=== PATIENT | female | born 2000 | race Caucasian/White ===

== ENCOUNTER 2022-08-16 15:50 | Emergency (ER) | payer OTHER ==
[2022-08-16 15:57] VITALS: BP 129/90; PULSE 95; RESP 18; TEMP 98.1; BMI 30.6
[2022-08-16] MEDS ORDERED: ACETAMINOPHEN 325 MG TABLET (FP) PO ONE (17:07)
[2022-08-16] MEDS ORDERED: ACETAMINOPHEN 325 MG TABLET (FP) ONE (17:07)
[2022-08-16 17:38] LABS: BASO % 0.6 % (0-2.0); EOS % 1.5 % (0-4.5); HCG,QUALITATIVE URINE Positive; HEMATOCRIT 40.8 % (32.4-45.2); HEMOGLOBIN 13.6 GM/dL (10.7-15.3); LYMPH % 20.4 % (8-40); MCH 24.1 pg (25.7-33.7); MCHC 33.3 g/dl (32.0-36.0); MEAN CELL VOLUME 72.3 fl (80-96); MEAN PLT VOLUME 9.7 fl (7.5-11.1); MONO % 5.8 % (3.8-10.2); NEUT % 71.7 % (42.8-82.8); PLATELET COUNT 322 10^3/uL (134-434); RBC 5.64 M/mm3 (3.60-5.2); RDW 15.6 % (11.6-15.6); WHITE BLOOD COUNT 16.3 K/mm3 (4.0-10.0)
[2022-08-16 17:41] LABS: EPI CELLS >36 /uL (0-25.1); HYALINE CASTS 1 /uL (0-3.1); URINE APPEARANCE CLEAR; URINE BACTERIA 1376 /uL (0-1359); URINE BILIRUBIN NEGATIVE (NEGATIVE); URINE COLOR YELLOW; URINE GLUCOSE (UA) NEGATIVE (NEGATIVE); URINE KETONE TRACE (NEGATIVE); URINE LEUK ESTERASE NEGATIVE (NEGATIVE); URINE NITRITE NEGATIVE (NEGATIVE); URINE PROTEIN NEGATIVE (NEGATIVE); URINE UROBILINOGEN 0.2 mg/dL (0.2-1.0); URINE WBC 40 /uL (0-25.8)
[2022-08-16 17:45] LABS: INR 0.97 (0.83-1.09); PROTHROMBIN TIME (PATIENT) 11.2 SEC (9.7-13.0); URINE RBC 37.9 /uL (0-23.9)
[2022-08-16 17:47] LABS: ACTIVATED PTT 28.5 SECONDS (25.2-36.5)
[2022-08-16 17:58] LABS: CALCIUM 9.5 mg/dL (8.5-10.1)
[2022-08-16 17:59] LABS: ALBUMIN 3.6 g/dl (3.4-5.0); BLOOD UREA NITROGEN 16.3 mg/dL (7-18)
[2022-08-16 18:02] LABS: CREATININE 0.6 mg/dL (0.55-1.3)
[2022-08-16 18:03] LABS: TOT PROT 7.9 g/dl (6.4-8.2)
[2022-08-16 18:04] LABS: BILIRUBIN,TOTAL 0.4 mg/dL (0.2-1)
[2022-08-16] MEDS ORDERED: CEPHALEXIN MONOHYDRATE 500 MG CAPSULE (UD) PO ONE (19:28)
[2022-08-16] MEDS ORDERED: CEPHALEXIN MONOHYDRATE 500 MG CAPSULE (UD) ONE (19:30)
== END 2022-08-16 19:49 | disposition home or self-care (01) ==
LOC: JER 15:50
DX: O20.9 Hemorrhage in early pregnancy, unspecified (principal)
CPT/HCPCS: 36415; 76817-TC; 80053; 81003; 84702; 84703; 85025; 85610; 85730; 86850; 86900; 86901; 99284-25

== ENCOUNTER 2022-11-27 17:33 | Emergency (ER) | payer OTHER ==
[2022-11-27 17:51] VITALS: BP 109/58; PULSE 88; RESP 18; TEMP 97.9; BMI 31.9
[2022-11-27] MEDS ORDERED: ALBUTEROL SO4 0.083% IH SOL 2.5 MG/3 ML VIAL.NEB. NEB ONE ×2 (18:32→18:47)
[2022-11-27] MEDS ORDERED: ALBUTEROL SO4 HFA INHALER IH ONE ×2 (20:21→20:22)
== END 2022-11-27 20:24 | disposition home or self-care (01) ==
LOC: JERFT 17:33
PROC: 3E0F7GC Introduction of Other Therapeutic Substance into Respiratory Tract, Via Natural or Artificial Opening (ICD-10-PCS; principal; 2022-11-27)
DX: O26.892 Other specified pregnancy related conditions, second trimester (principal); R05.9 Cough, unspecified; R06.02 Shortness of breath; R50.9 Fever, unspecified; Z3A.24 24 weeks gestation of pregnancy; Z20.822 Contact with and (suspected) exposure to COVID-19
CPT/HCPCS: 0241U-QW; 99284-25

== ENCOUNTER 2023-10-26 17:02 | Emergency (ER) | payer OTHER ==
[2023-10-26 17:06] VITALS: BP 119/63; PULSE 95; RESP 18; TEMP 98.3; BMI 28.3
== END 2023-10-26 18:29 | disposition home or self-care (01) ==
LOC: JERFT 17:02
DX: M79.672 Pain in left foot (principal); Z48.02 Encounter for removal of sutures
CPT/HCPCS: 99283-25